=== PATIENT | female | born 1960 | race Caucasian/White ===

== ENCOUNTER 2016-12-13 02:24 | Inpatient (IN) | payer OTHER ==
--- NOTE | ~2016-12-13 | HP ---
Unit #: [id number] #: [id number] Patient: FRANCOIS LEE [id number] [place] [address] [id number] MR#: [id number] NAME: FRANCOIS LEE ROOM: [facility] Age: 56 Sex: F Admission Date: 12/13/2016 : 1960 Attending Physician: Oscar Shin M.D. Admitting Physician: Oscar Shin M.D. Primary Care Physician: Radha Steinberg HISTORY AND PHYSICAL HISTORY OF PRESENT ILLNESS Francois is a 56 year old admitted to [facility] because of her abuse of alcohol and after an overdose of Elavil. She was admitted to the ICU at [facility] and when medically stable transferred [facility] for psychiatric care. PAST MEDICAL HISTORY 1. Obesity. 2. High blood pressure. 3. Diabetes mellitus. 4. GERD. 5. Hypothyroidism. PAST SURGICAL HISTORY x2. ALLERGIES Sulfa. SOCIAL HISTORY She does not smoke. Drinks at least half pint of whiskey on a daily basis and denies illicit drug use. FAMILY HISTORY Medically noncontributory. REVIEW OF SYSTEMS CONSTITUTIONAL: No fever or chills. HEENT: Denies any sore throat, ear pain or runny nose. CARDIOVASCULAR: Denies chest pain, irregular heart rhythm or palpitations. CHEST: Denies shortness of breath or cough. No hemoptysis. GASTROINTESTINAL: Denies nausea, vomiting, diarrhea or chronic constipation. ENDOCRINE: Denies history of increased thirst or urination. No recent significant weight loss or gain. GENITOURINARY: Denies dysuria, frequency, or hematuria. SKIN: Denies any rashes. HEMATOLOGIC: Denies history of increased bleeding or bruising. MUSCULOSKELETAL: Denies any hot, swollen joints. No generalized muscle pain. NEUROLOGIC: Denies problems with vision or speech. No frequent, severe headaches. No numbness, tingling or weakness in any extremities. Denies loss of bladder or bowel control. Unit #: [id number] #: [id number] Patient: FRANCOIS LEE CURRENT MEDICATIONS Detox protocol. PHYSICAL EXAMINATION GENERAL: Alert, obese, in no apparent distress. VITAL SIGNS: Blood pressure 152/100, heart rate 94, respirations 16, temperature 98.6. WEIGHT: 177. HEIGHT: 5 feet 5 inches. SKIN: Warm and dry without rash or lesion. HEENT: Normocephalic. TMs not viewed. Oral and nasal passages clear. Conjunctivae clear. PERRLA. EOMs intact. NECK: Supple without lymphadenopathy or thyromegaly. HEART: Regular rate and rhythm without murmur. LUNGS: Clear. ABDOMEN: Soft, nontender. : Not done. EXTREMITIES: No evidence of cyanosis, clubbing or edema. Moves all without focal deficit. NEUROLOGICAL: Grossly within normal limits. Cranial Nerves: II: Visual gonzalez are intact. III, IV AND : Extraocular movements are intact. Pupils are equal, round and reactive to light. V: Facial sensation is grossly normal. VII: Facial movements and expression are normal. VIII: Auditory acuity grossly intact. IX, X: Uvula is midline. Phonation is normal. XI: Patient shrugs shoulders and turns head normally. XII: Tongue protrudes in the midline. Sensory and Motor Function: Sensory and motor sensation is grossly normal. Motor: moves all extremities well. Coordination: Gait is normal. Deep Tendon Reflexes: Intact. IMPRESSION Psychiatric admission. RECOMMENDATIONS PSYCHIATRIC: Per psychiatrist. MEDICAL: 1. See no contraindications to participate in facility's activities. 2. Detox per protocol. 3. Check TSH. Patient is admitted on no thyroid medication. MEDICAL PROGNOSIS Good. MEDICAL CONDITION Stable. Dictated by... Xin Fallon P.A.-C. for Alejandra Byrne/kit TD: 12/13/2016 16:39 JOB #: [id number] Unit #: [id number] #: [id number] Patient: FRANCOIS LEE HISTORY AND PHYSICAL X Xin Fallon HISTORY AND PHYSICAL
--- NOTE | ~2016-12-13 | PA ---
Unit #: [id number] #: [id number] Patient: FRANCOIS LEE [id number] [place] [address] [id number] MR#: [id number] NAME: FRANCOIS LEE ROOM: [facility] Age: 56 Sex: F Admission Date: 12/13/2016 : 1960 Date of Assessment: 12/13/2016 Attending Physician: Oscar Shin M.D. Admitting Physician: Oscar Shin M.D. Primary Care Physician: Radha Steinberg PSYCHIATRIC ASSESSMENT IDENTIFYING INFORMATION The patient is a 56-year-old single white female admitted to the [address] [place] [address] for alcohol detox following an ingestion of amitriptyline. CHIEF COMPLAINT None given. INFORMANT(S) Patient, reliability is good. HISTORY OF PRESENT ILLNESS The patient is a 56-year-old single white female admitted in transfer from [facility] where she has been treated for an amitriptyline overdose. She was in the hospital down there for approximately 5 days. The patient is now admitted with a history of alcohol dependence. She reports that she is drinking about 10 beers and 10 shots of hard liquor on a daily basis. The patient also complains of depressed mood related to her current living situation. The patient reports that she has significant financial stressors and has been unable to find a job. The patient reports that she has been prescribed amitriptyline through the auspices of the [facility]. Prior to that she had an unsuccessful trial of Zoloft. The patient is denying suicidal ideation when seen today but denies homicidal or suicidal ideation when seen today but continues to endorse feelings of depressed mood. She complains of poor sleep but no recent loss of appetite. She denies abuse of psychoactive substances apart from alcohol. PAST PSYCHIATRIC HISTORY As above. PAST MEDICAL HISTORY The patient denies prior suicide attempts or gestures and has never been psychiatrically hospitalized but does report that she has been prescribed medications through the auspices of outpatient providers. PAST MEDICAL HISTORY Significant for a history of diabetes mellitus, COPD, and GERD as well as hypothyroidism. MEDICATIONS Cetirizine, metformin, Ketorolac, amitriptyline, halobetasol, Omeprazole, Thyroid. Unit #: [id number] #: [id number] Patient: FRANCOIS LEE ALLERGIES Sulfa. FAMILY HISTORY Noncontributory. SOCIAL HISTORY The patient lives alone. She is presently unemployed. She reports alcohol use as noted previously and is smoker. MENTAL STATUS EXAMINATION Examination at this time reveals the patient to be an obese white female appearing her stated age. She is in no apparent physical distress at the time of examination. She is awake, alert, and oriented in all spheres. Her mood is mildly dysphoric, her affect constricted. Speech is generally well coherent. There are no gross deficits in memory or cognition noted. Intelligence is judged to be in the average range based on fund of knowledge. The patient is cooperative throughout the interview. She is currently denying suicidal or homicidal ideation or psychotic features. Judgment and insight appear to be intact. ASSETS AND LIABILITIES The patient's assets: Motivation for change. Liabilities: Lack of resources. DIAGNOSTIC IMPRESSION 1. Major depressive disorder, recurrent, moderate. 2. Alcohol use disorder status post amitriptyline ingestion without sequelae. 3. Environmental allergies. 4. Diabetes mellitus. 5. Hypothyroidism. 6. Gastroesophageal reflux disease. TREATMENT PLAN The patient remains hospitalized for safety and stabilization, but she has been placed on routine detoxification protocol for alcohol though given the duration of her stay at [facility] it is unlikely that she will have much in the way of signs or symptoms of withdrawal. The patient's amitriptyline will be discontinued and said she will be started on Remeron 15 mg at h.s. to address depressive symptoms. ESTIMATED LENGTH OF STAY 3 to 5 days. The followup will take place through the auspices of the intensive outpatient program provided by this facility. Dictated by... Oscar Shin M.D. Andree TD: 12/13/2016 14:35 JOB #: [id number] Unit #: [id number] #: [id number] Patient: FRANCOIS LEE PSYCHIATRIC ASSESSMENT X Oscar Shin MD PSYCHIATRIC ASSESSMENT
--- NOTE | ~2016-12-13 | DS ---
Unit #: [id number] #: [id number] Patient: FRANCOIS LEE [id number] [place] [address] [id number] MR#: [id number] NAME: FRANCOIS LEE ROOM: [facility] Age: 56 Sex: F Admission Date: 12/13/2016 : 1960 Discharge Date: 12/14/2016 Attending Physician: Oscar Shin M.D. Primary Care Physician: Radha Steinberg DISCHARGE SUMMARY REASON FOR ADMISSION The patient is a 56-year-old white female, admitted to the [facility] unit following an ingestion of Elavil and increasing use of alcohol. HOSPITAL COURSE The patient was admitted to the [facility] unit and placed on suicide precautions. She exhibited little in the way of signs or symptoms of withdrawal. When seen by this physician, decision was made to switch the patient's medication from Elavil to Remeron. She tolerated the medication change without complaint. By 12/14/2016, the patient was in brighter spirits and denied suicidal ideation. She requested discharge from the hospital and it was so ordered. FINAL DIAGNOSES Alcohol use disorder, dysthymic disorder, hypothyroidism, environmental allergies, diabetes mellitus, gastroesophageal reflux disease. DISPOSITION ON DISCHARGE The patient is discharged on the following medications; Ultravate apply once daily to affected areas, Protonix 40 mg daily for GERD, Claritin 10 mg daily for environmental allergies, Zaditor instill b.i.d. reason unknown, [place] Thyroid 30 mg once daily for thyroid supplementation, Glucophage 500 mg b.i.d. before meals for diabetes mellitus, Remeron 15 mg at bedtime for depression. DISCHARGE INSTRUCTIONS No dietary or physical restrictions were placed on the patient at the time of discharge. FOLLOWUP She will follow in the chemical dependency intensive outpatient program provided by this facility and through the auspices of community mental health resources. PROGNOSIS Her prognosis is considered fair. Dictated by... Oscar Shin M.D. CB/modl Unit #: [id number] #: [id number] Patient: FRANCOIS LEE TD: 12/14/2016 22:10 JOB #: [id number] DISCHARGE SUMMARY X Oscar Shin MD DISCHARGE SUMMARY
[2016-12-13 09:52] LABS: BASOPHIL% 0.9 % (0-2.5); EOSINOPHIL# 0.3 X10e3 (0-0.7); EOSINOPHIL% 7.1 % (0.0-7.0); HEMOGLOBIN 10.8 gm/dL (12.0-16.0); LYMPHOCYTE# 1.3 X10e3 (1.0-3.5); MEAN CELL VOLUME 90.6 FL (83-96); MEAN CORPUSCULAR HEMOGLOBIN 30.5 PG (28-34); MEAN CORPUSCULAR HGB CONC 33.7 g/dL (30-36); MEAN PLATELET VOLUME 8.2 FL (6.5-11.5); MONOCYTE# 0.5 X10e3 (0-1.0); MONOCYTE% 11.3 % (3.0-12.0); NEUTROPHIL# 2.5 X10e3 (1.5-7.1); NEUTROPHIL% 52.7 % (40-75); PLATELET COUNT 152 X10e3 (140-420); RED BLOOD COUNT 3.53 X10e (3.90-5.30); RED CELL DISTRIBUTION WIDTH 15.3 % (11.0-15.5); WHITE BLOOD COUNT 4.8 X10e3 (4.0-10.5)
[2016-12-13 09:57] LABS: DIFF IND NO
[2016-12-13 10:56] LABS: ALKALINE PHOSPHATASE 193 U/L (32-92); ALT (SGPT) 25 U/L (10-40); AST (SGOT) 58 U/L (10-42); BILIRUBIN,TOTAL 1.1 mg/dL (0.2-2.0); BLOOD UREA NITROGEN <5 mg/dL (9-23); BUN/CREATININE RATIO 8.33; CALCIUM SERUM 8.6 mg/dL (8.4-10.2); CARBON DIOXIDE 27 mmol/L (22-31); CHLORIDE 100 mmol/L (100-111); CREATININE SERUM 0.6 mg/dL (0.6-1.4); GLOM FILT RATE Estimated ABOVE60 mL/min (>60); GLUCOSE FASTING 112 mg/dL (70-110); POTASSIUM 3.3 mmol/L (3.5-5.1); SODIUM 137 mmol/L (135-145); THYROID STIMULATING HORMONE 9.07 uIU/ml (0.34-5.60)
[2016-12-13 11:03] LABS: FREE THYROXIN (T4) 0.94 ng/dL (0.58-1.64)
== END 2016-12-14 15:50 | disposition home or self-care (01) | DRG 897 ==
LOC: P1E 02:24
PROVIDERS: Specialist
PROC: HZ2ZZZZ Detoxification Services for Substance Abuse Treatment (ICD-10-PCS; principal; 2016-12-13)
DX: F10.20 Alcohol dependence, uncomplicated (principal); F33.1 Major depressive disorder, recurrent, moderate; E11.9 Type 2 diabetes mellitus without complications; E03.9 Hypothyroidism, unspecified; K21.9 Gastro-esophageal reflux disease without esophagitis; F34.1 Dysthymic disorder
CPT/HCPCS: 80053; 82947; 84439; 84443; 84703; 85025; 86592